=== PATIENT | female | born 1990 | race Hispanic/Latino ===

== ENCOUNTER 2019-11-07 10:09 | Emergency (ER) | payer MEDICAID ==
[2019-11-07] MEDS ORDERED: HALOPERIDOL LACTATE 5 MG/1 ML INJ IM ONE (11:44)
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
[2019-11-07] MEDS ORDERED: diphenhydrAMINE 50 MG/ML VIAL IM ONE (12:14)
[2019-11-07] MEDS: diphenhydrAMINE 50 MG/ML VIAL IV ONE ×2 (12:18→12:35)
[2019-11-07 12:24] LABS: Basophils # (Auto) 0.2 K/mm3 (0.0-0.1); Basophils % (Auto) 1.1 % (0.0-1.8); Eosinophils % (Auto) 0.1 % (0.0-4.3); Hematocrit 34.8 % (30.3-42.9); Hemoglobin 11.6 gm/dl (10.1-14.3); Lymphocytes # (Auto) 1.8 K/mm3 (1.2-5.4); Lymphocytes % (Auto) 11.2 % (13.4-35.0); Mean Corpuscular HGB Conc 33 % (30-34); Mean Corpuscular Volume 78 fl (79-97); Monocytes # (Auto) 0.8 K/mm3 (0.0-0.8); Platelet Count 523 K/mm3 (140-440); Red Blood Count 4.45 M/mm3 (3.65-5.03); Red Cell Distribution Width 17.2 % (13.2-15.2)
[2019-11-07] MEDS ORDERED: LORazepam 2 MG/ML VIAL IM ONE (12:47)
[2019-11-07 12:49] LABS: Alanine Aminotransferase 13 units/L (7-56); Albumin 3.7 g/dL (3.9-5); BUN/Creatinine Ratio 10; Blood Urea Nitrogen 6 mg/dL (7-17); Calcium 9.5 mg/dL (8.4-10.2); Hemolysis Index 2
[2019-11-07] MEDS ORDERED: LORazepam 2 MG/ML VIAL ONE (12:50)
[2019-11-07 13:05] LABS: Bacteria,Urine 1+ /HPF (Negative); Bilirubin,Urine NEG (Negative); Blood,Urine NEG (Negative); Color,Urine Amber (Yellow); Mucus,Urine 3+ /HPF
[2019-11-07 13:10] LABS: Benzodiazepines Screen,Urine PRESUMPTIVE NEGATIVE; Cocaine Screen,Urine PRESUMPTIVE NEGATIVE; Methadone Screen,Urine PRESUMPTIVE NEGATIVE; Opiate Screen,Urine PRESUMPTIVE NEGATIVE
[2019-11-07] MEDS ORDERED: LIDOCAINE-MPF (1%) 10 MG/1 ML VIAL 5 ML INFILTRATI ONE (13:24)
[2019-11-07 13:26] LABS: Amphetamine Screen,Urine PRESUMPTIVE POSITIVE; Cannabinoid Screen,Urine PRESUMPTIVE POSITIVE
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
[2019-11-08 15:53] VITALS: BP 135/84
--- NOTE | 2019-11-08 16:00 | Event Note ---
Date: 11/08/19 Patient seen and evaluated by the psychiatry team. Her 1013 psychiatric hold has been discontinued. Patient resting comfortably, and her stretcher, and in no acute distress. Her father is coming by to pick her up the patient is clinically sober at this time. She is alert and oriented appropriately. I we have counseled the patient to discontinue methamphetamine and marijuana consumption..\ Vital Signs 11/07/19 11/07/19 11/07/19 11:16 15:00 19:20 Temperature 99.6 F Pulse Rate 127 H 88 80 Respiratory 24 16 18 Rate Blood Pressure 129/55 116/78 100/62 [Right] O2 Sat by Pulse 97 97 94 Oximetry 11/07/19 11/08/19 11/08/19 19:38 01:20 09:01 Temperature 97.6 F 98.0 F 97.7 F Pulse Rate 80 86 80 Respiratory 18 20 18 Rate Blood Pressure 100/62 123/69 101/66 [Right] O2 Sat by Pulse 94 95 95 Oximetry 11/08/19 15:51 Temperature 98.2 F Pulse Rate 70 Respiratory Rate Blood Pressure 135/84 [Right] O2 Sat by Pulse 97 Oximetry
== END 2019-11-08 18:28 | disposition home or self-care (01) ==
LOC: ED 10:09 → EEVIPCON 10:09 → ED 11-08 18:28
DX: F41.9 Anxiety disorder, unspecified (principal); N39.0 Urinary tract infection, site not specified; F17.200 Nicotine dependence, unspecified, uncomplicated; F12.10 Cannabis abuse, uncomplicated
CPT/HCPCS: 36415; 80053; 80307; 81001; 82550; 84443; 84703; 85025; 96372; 99284; J0696; J1200; J1630; J2060; 80320; G0480